=== PATIENT | male | born 1970 | race African-American/Black ===

== ENCOUNTER 2023-03-26 00:32 | Emergency (ER) | payer BC, SELFPAY ==
[2023-03-26 00:34] VITALS: BP 116/73; PULSE 71; RESP 16; TEMP 36.8; O2SAT 99; BMI 23.6
[2023-03-26 00:42] VITALS: BP 116/73; PULSE 73; O2SAT 99
--- NOTE | 2023-03-26 00:51 | ECG_ITS ---
APPROVED REPORT Exam: Resting ECG HR:68 bpm ECG Measurements Heart Rate 68 AXES CO 189 P 33 QRSd 85 QRS 74 QT 369 T 51 QTc 387 Conclusion SINUS RHYTHM NORMAL ECG UNCONFIRMED REPORT Electronically signed by : Beto Zaidi MD 03/26/2023 15:51:46
[2023-03-26 00:56] LABS: Basophils # 0.1 K/mm3 (0-0.2); Basophils % 0.6 % (0.1-2.0); Eosinophils # 0.2 K/mm3 (0.0-0.4); Eosinophils % 2.3 % (0.1-12.0); Hematocrit 44.2 % (42.0-52.0); Hemoglobin 14.1 g/dL (14.1-18.0); Lymphocytes # 1.3 K/mm3 (0.7-4.5); Lymphocytes % 16.9 % (10-50); Mean Corpuscular HGB Conc 31.8 g/dL (31.8-35.4); Mean Corpuscular Hemoglobin 24.9 pg (27.0-31.2); Mean Corpuscular Volume 78.1 fl (80-94); Monocytes # 0.4 K/mm3 (0.1-1.0); Monocytes % 5.6 % (1.7-9.3); Neutrophils # 5.8 K/mm3 (1.8-7.8); Neutrophils % 74.7 % (37.0-80.0); Platelet Count 318 K/mm3 (142-424); Red Blood Count 5.66 M/mm3 (4.60-6.20); Red Cell Distribution Width 17.4 % (11.5-17.5); White Blood Count 7.8 K/mm3 (4.8-10.8)
[2023-03-26 01:01] LABS: Chloride 100 mmol/L (98-107); Potassium 4.5 mmoL/L (3.5-5.1); Sodium 143 mmol/L (136-145)
[2023-03-26 01:04] LABS: Alanine Aminotransferase 27 U/L (12-78); Albumin Level 4.4 g/dl (3.5-5.0); Albumin/Globulin Ratio 1.6 (1.1-1.8); Alkaline Phosphatase 76 U/L (38-126); Anion Gap 19.5 mEq/L (5-15); Aspartate Amino Transferase 31 U/L (17-59); Bilirubin,Total 0.4 mg/dl (0.2-1.3); Blood Urea Nitrogen 22 mg/dl (9-20); Calcium 9.3 mg/dl (8.4-10.2); Carbon Dioxide 28 mmol/L (22.0-30.0); Creatine Kinase 279 U/L (55-170); Creatinine Clearance Estimated 82 mL/min (50-200); Estimated Glomerular Filt Rate 70 ml/min (>60); GFR (African American) 85 ML/MIN (>60); Globulin 2.8 g/dL (1.3-3.2); Glucose 79 mg/dl (74-100); Total Protein,Serum 7.2 g/dl (6.3-8.2)
[2023-03-26 01:17] LABS: Troponin I < 0.01 ng/ml (0.00-0.034)
[2023-03-26 01:37] VITALS: BP 112/74; PULSE 70; RESP 16; TEMP 36.8; O2SAT 99
--- NOTE | 2023-03-26 03:50 | [facility].EDGENADL ---
Discharge Plan Disposition Patient Disposition: Home, Self-Care Condition: Good Prescriptions Prescriptions: No Action amlodipine 10 mg tablet 10 mg PO DAILY Qty: 90 3RF gabapentin 300 mg capsule 300 mg PO BID Qty: 60 5RF ergocalciferol (vitamin D2) 1,250 mcg (50,000 unit) capsule 1,250 mcg PO WEEKLY Qty: 7 10RF Referrals Follow up/Referrals: Blaine Alegre MD [Primary Care Provider] - See instructions Activity Restrictions/Add. Instructions Additional Instructions/Restrictions: Please return immediately to the ER for any new or worsening symptoms. Please see your primary care provider in 2-3 days for reevaluation of your symptoms. Clinical Impressions Clinical Impression: Syncope, Acute dehydration Instructions Patient Instructions: DI for Syncope in Adults (Fainting), DI for Syncope in Children (Fainting) Discharge ED Provider: Quan Wang Adult HPI General Chief complaint: Syncope Stated complaint: Cold sweats,cramping Time Seen by Provider: 03/26/23 00:36 Mode of Arrival: Ambulatory Source of Information: Patient Limitations: No Limitations Description of Symptoms (Recalled from ER Triage Doc. by RN): Pt arrives with c/o syncope episodes associated with lightheadedness and feeling hot . Pt stated it occurred around 1830 this evening and happened again around midnight tonight. History of Present Illness HPI narrative: This is a very pleasant 53-year-old gentleman who presents to the emergency department with a chief complaint of syncope. Patient states he works nights and then had been working outside today. States he is very tired and dehydrated. He states this is happened in the past and he received a full work-up. States this evening he felt lightheaded, tunnel vision, hot and sweaty and then almost syncopized. Also complains of cramping in his bilateral lower extremities. No chest pain, shortness of breath, headache, or neck stiffness. Related Data Previous Rx's Medication Instructions Recorded amlodipine 10 mg tablet 10 mg PO DAILY #90 tabs 02/11/23 ergocalciferol (vitamin D2) 1,250 1,250 mcg PO WEEKLY vitamin d 02/11/23 mcg (50,000 unit) capsule deficiency #7 caps gabapentin 300 mg capsule 300 mg PO BID #60 caps 02/11/23 Allergies Allergy/AdvReac Type Severity Reaction Status Date / Time No Known Allergies Allergy Verified 02/11/23 14:06 [facility] Disclaimer: The information contained in this section may have been updated after the patient was seen, as this information can be updated by other users. Social History Smoking Status: Current every day smoker tobacco type: cigarettes packs per day: 1 alcohol intake: current substance use type: denies use current occupational status: employed Travel in the last 8 weeks: None ROS Obtained: Yes All systems reviewed & no additional complaints except as documented Physical Exam General General appearance: alert Head Head exam: atraumatic Eye Eye exam: Present normal appearance, PERRL and EOMI ENT ENT exam: Present normal exam Neck Neck exam: Present normal inspection Chest Chest inspection: Present normal inspection Respiratory Respiratory exam: Present normal lung sounds bilaterally Cardiovascular Cardiovascular exam: Present regular rate and normal rhythm Abdominal Exam Abdominal exam: Present soft exam: Present normal inspection Extremities Exam Extremities exam: Present normal inspection, full ROM and other (No tenderness.) Neurological Exam Neurological exam: Present alert, oriented X3, CN II-XII intact, normal gait and other (5 out of 5 strength in all 4 extremities, normal sensation to light touch in all 4 extremities.) Medical Decision Making [place] Inquiry Pt receiving controlled substance: No Vital Signs: 03/26/23 00:34 03/26/23 00:42 03/26/23 01:37 Temperature 98.2 F 98.3 F Temperature Source Oral Oral
== END 2023-03-26 01:39 | disposition home or self-care (01) ==
PROVIDERS: Emergency Provider Emergency Medicine; PCP Family Medicine
DX: R55 Syncope and collapse (principal); F17.210 Nicotine dependence, cigarettes, uncomplicated; E86.0 Dehydration
CPT/HCPCS: 80053; 82550; 84484; 85025; 93005; 96360; 96361; 99285

== ENCOUNTER 2023-11-25 09:06 | Outpatient (CLI) | payer BC, SELFPAY ==
[2023-11-25 22:43] LABS: Amphetamine/Metha Screen,Urine Negative ng/ml (<1000); Barbiturates Screen,Urine Negative ng/ml (<200); Benzodiazepines Screen,Urine Negative ng/ml (<200); Cannabinoid Screen,Urine Positive ng/ml (<50); Cocaine Screen,Urine Negative ng/ml (<300); Opiate Screen,Urine Negative ng/ml (<300); Phencyclidine Screen,Urine Negative ng/ml (<25)
[2023-11-25 22:47] LABS: Methadone Screen,Urine Negative ng/ml (<300)
== END 2023-11-25 23:59 ==
LOC: LAB.DROPOF 11-26 09:07
PROVIDERS: PCP Family Medicine; Visit Provider Family Medicine
DX: Z79.899 Other long term (current) drug therapy (principal)
CPT/HCPCS: 80307